=== PATIENT | male | born 1980 | race Caucasian/White ===

== ENCOUNTER 2019-06-04 16:38 | Emergency (ER) | payer OTHER, SELFPAY ==
--- NOTE | ~2019-06-04 | XR_ITS ---
EXAMINATION: XR chest 2V 06/04/2019 17:38 INDICATION: Cough, chest congestion and fever PROCEDURE: 2 view chest COMPARISON: 11/13/2013 FINDINGS: The lungs are clear. The cardiomediastinal silhouette is within normal limits. There are no pleural effusions. There is no pneumothorax suspected. IMPRESSION: 1: NO ACUTE CARDIOPULMONARY DISEASE. Reviewed, dictated and finalized at location A. ETIC GRINDER OPERATOR
[2019-06-04 16:46] VITALS: BP 144/83; PULSE 87; RESP 18; TEMP 37.1; O2SAT 100
[2019-06-04 16:48] VITALS: O2SAT 100
--- NOTE | 2019-06-04 17:31 | ED.URI ---
HPI - URI/Sore Throat General Chief Complaint: Upper Respiratory Infection Stated Complaint: uri Time Seen by Provider: 06/04/19 17:13 Source: patient Mode of arrival: ambulatory Limitations: no limitations History of Present Illness HPI Narrative: This is a 38 year old male that presents to the ER for cold symptoms x 3 weeks. Reports congestion, sinus pain, sore throat and cough. Reports he has been taking OTC cold medications with little relief. Also reports a rash that has been present for the last two weeks. Reports dry, scaly plaques on the axilla, neck, chest and back. Denies fever, chest pain or shortness of breath. Related Data Allergies Allergy/AdvReac Type Severity Reaction Status Date / Time No Known Allergies Allergy Unknown Verified 02/24/19 14:17 Review of Systems Review of Systems: Narrative: CONSTITUTIONAL: Denies fever ENT: Reports rhinorrhea, congestion, sore throat. Denies otalgia. CARDIOVASCULAR: Denies chest pain RESPIRATORY: Denies dyspnea. All systems reviewed & are unremarkable except as noted in HPI and below PMFSH Past Medical History Medical History (Updated 06/04/19 @ 17:50 by Arielle Goldberg PA-C) History of anxiety Social History Social History Smoking status: Current every day smoker Alcohol intake: current Gender identity (if verbalized by the patient): Male Exam Narrative: Exam Narrative: GENERAL: Well-appearing, well-nourished, and in no acute distress. HEAD: Normocephalic, atraumatic. EYES: EOMI. ENT: Turbinates swollen and pale. Mucous membranes moist. Oropharynx without tonsillar hypertrophy exudate or other lesions. Bilateral TMs pearly willis non-bulging. Tender to palpation of the frontal sinuses bilaterally NECK: Supple. No adenopathy or masses. CHEST: Clear to auscultation. No respiratory distress. No wheezes rales or rhonchi HEART: Regular rate and rhythm. No murmur heard. Normal peripheral pulses. EXTREMITIES: Normal range of motion. No edema. SKIN: Warm, dry. Small, dry, scaly, plaques on erythematous base present on the neck, chest and back. Large plaques present in bilateral axilla NEURO: No focal deficits. Alert and oriented x3. PSYCH: Normal mood and affect Course Vital Signs Vital signs: Vital Signs Temperature 98.7 F 06/04/19 16:46 Pulse Rate 87 06/04/19 16:46 Respiratory Rate 18 06/04/19 16:46 Blood Pressure 144/83 H 06/04/19 16:46 Pulse Oximetry 100 06/04/19 16:46 Temperature 98.7 F 06/04/19 16:46 Pulse Rate 87 06/04/19 16:46 Respiratory Rate 18 06/04/19 16:46 Blood Pressure 144/83 H 06/04/19 16:46 Pulse Oximetry 100 06/04/19 16:48 MDM - URI/Sore Throat MDM Narrative Medical decision making narrative: Patient presents emergency department for sinus congestion x3 weeks. He is afebrile and nontoxic-appearing. He has been taking [id number] medications with no relief with consistent symptoms for 3 weeks. He will be started on an antibiotic for this. Chest x-ray is clear. Patient also with rash present on the neck, chest, back and and bilateral axilla. Rash consistent with plaque psoriasis. Patient will be started on a topical corticosteroid for this and was instructed to follow-up with dermatology. Patient was given warnings to return to the ER Lab Data Labs: Influenza A Screen Negative Reference Range: Negative Influenza B Screen Negative Reference Range: Negative Strep Screen Presumptive Negative *(Reference Range: Negative)* Imaging Data Radiologist's impression: ITS Impressions Chest X-Ray 06/04/19 17:41 IMPRESSION: 1: NO ACUTE CARDIOPULMONARY DISEASE. Critical Care Time Critical Care Time Critical Care Time: No Discharge Plan Discharge Clinical Impression: Rash and nonspecific skin eruption Sinusitis Qualifiers: Sinusitis location: frontal Chronicity: acute Recurrence: non-recurrent Qualified Code(
[2019-06-04 18:16] VITALS: BP 140/67; PULSE 80; RESP 19; O2SAT 100
== END 2019-06-04 18:18 | disposition home or self-care (01) ==
PROVIDERS: Emergency Provider Emergency Medicine; PCP Family Medicine
DX: J01.10 Acute frontal sinusitis, unspecified (principal); R21 Rash and other nonspecific skin eruption; F17.200 Nicotine dependence, unspecified, uncomplicated
CPT/HCPCS: 71046; 87081; 87804; 87880; 99283

== ENCOUNTER 2019-06-17 20:00 | Emergency (ER) | payer OTHER, SELFPAY ==
[2019-06-17 20:02] VITALS: BP 131/88; PULSE 89; RESP 16; TEMP 37.7; O2SAT 100
--- NOTE | 2019-06-17 20:22 | ED.GENADULT ---
HPI - General Adult General Chief complaint: Skin/Abscess/Foreign Body Stated complaint: RASH TO HANDS AND FEET Time Seen by Provider: 06/17/19 20:19 Source: patient Mode of arrival: ambulatory Limitations: no limitations History of Present Illness HPI narrative: Patient is a 38-year-old male who presents with 1 month duration of rash has been seen for this in the emergency department was advised to follow-up with dermatology but never did patient on arrival to emergency department notes itching associated with the lesions denies any fever chills nausea vomiting has also been prescribed a topical cream which did not help Related Data Allergies Allergy/AdvReac Type Severity Reaction Status Date / Time No Known Allergies Allergy Unknown Verified 02/24/19 14:17 Review of Systems Review of Systems: Narrative: CONSTITUTIONAL: Denies fever, chills, or sweats. EYES: Denies redness, or discharge. ENT: Denies rhinorrhea, congestion, sore throat, or otalgia. SKIN: Positive for itching and rash MUSCULOSKELETAL: Denies joint pain, or myalgia. PMF Past Medical History Medical History History of anxiety Social History Social History Smoking status: Current every day smoker Alcohol intake: current Gender identity (if verbalized by the patient): Male Exam Narrative: Exam Narrative: GENERAL: Well-appearing, well-nourished, and in no acute distress. HEAD: Normocephalic, atraumatic. EYES: PERRLA and EOMI. ENT: Nares clear, no rhinorrhea or epistaxis. Mucous membranes moist. EXTREMITIES: Normal range of motion. No edema. SKIN: Warm, dry, patient with erythematous plaques in the axilla and groin with other small lesions over the extremities NEURO: Alert and oriented x3. Cranial nerves II through XII grossly intact PSYCH: Normal mood and affect. Course Course Emergency Course: Patient in the room in no distress aware of case findings treatment plan and diagnosis agreeing to follow-up as directed Vital Signs Vital signs: Vital Signs Temperature 99.8 F H 06/17/19 20:02 Pulse Rate 89 06/17/19 20:02 Respiratory Rate 16 06/17/19 20:02 Blood Pressure 131/88 06/17/19 20:02 Pulse Oximetry 100 06/17/19 20:02 Temperature 99.8 F H 06/17/19 20:02 Pulse Rate 89 06/17/19 20:02 Respiratory Rate 16 06/17/19 20:02 Blood Pressure 131/88 06/17/19 20:02 Pulse Oximetry 100 06/17/19 20:02 Medical Decision Making MDM Narrative Medical decision making narrative: Patient in the room in no distress advised to follow with primary care and dermatology for further evaluation Vital Signs Vital Signs: Vital Signs Temperature 99.8 F H 06/17/19 20:02 Pulse Rate 89 06/17/19 20:02 Respiratory Rate 16 06/17/19 20:02 Blood Pressure 131/88 06/17/19 20:02 Pulse Oximetry 100 06/17/19 20:02 Temperature 99.8 F H 06/17/19 20:02 Pulse Rate 89 06/17/19 20:02 Respiratory Rate 16 06/17/19 20:02 Blood Pressure 131/88 06/17/19 20:02 Pulse Oximetry 100 06/17/19 20:02 Discharge Plan Discharge Clinical Impression: Rash and nonspecific skin eruption Patient Disposition: Home, Self-Care Condition: Stable Instructions: Antibiotic Form, Psoriasis (ED) Additional Instructions: Follow-up with dermatology and primary care in the next 7 days for reevaluation Return if symptoms worsen or concerns or any increase in redness swelling pain fever 100.5 or any loss of feeling or function in the extremities Only take medications as directed Follow patient education sheets Prescriptions: New hydroxyzine HCl 25 mg tablet 25 mg PO BID PRN (Reason: itching) Qty: 7 RF: 0 No Action triamcinolone acetonide 0.025 % cream 1 applic TOPICAL BID 14 Days Qty: 80 RF: 0 amoxicillin-pot clavulanate 875-125 mg tablet 1 tablet PO Q12H 5 Days Qty: 10 RF: 0 Follow-up/Referral
[2019-06-17 20:40] VITALS: PULSE 96; O2SAT 100
== END 2019-06-17 20:46 | disposition home or self-care (01) ==
PROVIDERS: Emergency Provider Emergency Medicine; PCP Family Medicine
DX: R21 Rash and other nonspecific skin eruption (principal); F41.9 Anxiety disorder, unspecified; F17.210 Nicotine dependence, cigarettes, uncomplicated
CPT/HCPCS: 99283

== ENCOUNTER 2019-08-08 17:00 | Emergency (ER) | payer OTHER, SELFPAY ==
--- NOTE | ~2019-08-08 | XR_ITS ---
EXAMINATION: XR chest 1V portable INDICATION: Cough and shortness of breath TECHNIQUE: Portable AP chest at 1727 hours COMPARISON: 06/04/2019 FINDINGS: The lungs are free of acute opacities. There is no pleural effusion or pneumothorax. The ca rdiomediastinal silhouette is normal. The visualized bones and soft tissues are unremarkable. IMPRESSION: 1. No acute cardiopulmonary abnormality. Reviewed, dictated and finalized at location A.
[2019-08-08 17:10] VITALS: BP 141/92; PULSE 89; RESP 16; TEMP 37.1; O2SAT 98
--- NOTE | 2019-08-08 17:13 | ED.FEVER ---
HPI - Fever General Chief Complaint: Fever Stated Complaint: fever Time Seen by Provider: 08/08/19 17:08 Source: patient and RN notes reviewed Mode of arrival: ambulatory Limitations: no limitations History of Present Illness HPI Narrative: A 38 y/o male presents to the ED with a subjective fever for the past 2 days. He reports associated diaphroesis, rhinorrhea, cough, SOB and nausea in the mornings. He denies taking anything for his symptoms or any known sick contacts, but he does note that him and his brother, who he lives with, are still currently working. He denies any tremors, chills, body aches, dysuria,or urinary frequency. MD elicited complaint: fever (subjective) Onset (ago): day(s) (2) Associated symptoms: rhinorrhea, cough, shortness of breath, nausea (in the mornings) and other (diaphoresis) Treatments prior to arrival fever: none Related Data Home Medications Medication Instructions Recorded Confirmed buspirone 15 mg 08/08/19 Allergies Allergy/AdvReac Type Severity Reaction Status Date / Time No Known Allergies Allergy Unknown Verified 08/08/19 17:17 Review of Systems Review of Systems: All systems reviewed & are unremarkable except as noted in HPI and below Constitutional: Constitutional: Denies body ache(s), Denies chills, Reports fever(s) (subective) and Reports other (diaphoresis) ENT: Reports nasal discharge Respiratory: Respiratory: Reports cough and Reports dyspnea Gastrointestinal: Gastrointestinal: Reports nausea (in the mornings) Genitourinary: Genitourinary: Denies dysuria and Denies urinary frequency Neurologic: Denies tremor(s) PMFSH Past Medical History Medical History History of anxiety History of liver disease Hx of fracture of rib Surgical History Surgical History Surgical history unknown Social History Social History Smoking packs per day: 1 Smoking cigarettes per day: 20.0 Smoking status: Current every day smoker Alcohol intake: current Gender identity (if verbalized by the patient): Male Exam Narrative: Exam Narrative: GENERAL: Well-appearing, well-nourished, and in no acute distress. HEAD: Normocephalic, atraumatic. ENT: Mucous membranes moist. CHEST: Clear to auscultation. No respiratory distress. HEART: Regular rate and rhythm. Normal peripheral pulses. ABDOMEN: Soft, nontender, nondistended. EXTREMITIES: Normal range of motion. No edema. NEURO: Alert and oriented x3. PSYCH: Normal mood and affect. Course Vital Signs Vital signs: Vital Signs Temperature 98.7 F 08/08/19 17:10 Pulse Rate 89 08/08/19 17:10 Respiratory Rate 16 08/08/19 17:10 Blood Pressure 141/92 H 08/08/19 17:10 Pulse Oximetry 98 08/08/19 17:10 Temperature 98.7 F 08/08/19 17:10 Pulse Rate 89 08/08/19 17:10 Respiratory Rate 16 08/08/19 17:10 Blood Pressure 141/92 H 08/08/19 17:10 Pulse Oximetry 98 08/08/19 17:10 MDM - Fever Lab Data Result diagrams: 08/08/19 17:20 08/08/19 17:20 Labs: Lab Results 08/08/19 08/08/19 08/08/19 Range/Units 17:20 17:20 17:49 WBC 5.9 (4.5-10.0) K/mm3 RBC 4.71 (4.6-6.20) M/mm3 Hgb 15.8 (14.0-18.0) g/dL Hct 46.3 (42.0-52.0) % MCV 98.3 (80-100) fl MCH 33.5 (26-34) pg MCHC 34.1 (32-36) g/dl RDW 13.0 (11.5-14.5) % Plt Count 311 (150-375) k/mm3 MPV 8.5 (7.4-10.4) fl Immature Gran % (Auto) 0.5 (0-0.5) % Neut % (Auto) 47.1 (45.5-73.1) % Lymph % (Auto) 37.1 (18.3-44.2) % [facility] % (Auto) 9.9 H (2.6-8.5) % Eos % (Auto) 4.4 (0-4.4) % Baso % (Auto) 1.0 (0.2-1.2) % Lymph # (Auto) 2.17 (0.9-3.2) K/mm3 [facility] [facility] # (Auto) 0.6 (0.1-0.6) K/mm3 Eos # (Auto) 0.3 (0-0.3) K/mm3 Baso # (Auto) 0.1 (0.0-0.1) K/mm3 Abs Immat Gran (auto) 0.03 (0.00-0.031) K/mm3 A
[2019-08-08] MEDS: SODIUM CHLORIDE 0.9% IV 1,000 ML 999 ML IV CONT (17:30)
[2019-08-08 17:34] LABS: Basophils Absolute Auto 0.1 K/mm3 (0.0-0.1); Eosinophils Absolute Auto 0.3 K/mm3 (0-0.3); Eosinophils Percent Auto 4.4 % (0-4.4); Hematocrit 46.3 % (42.0-52.0); Hemoglobin 15.8 g/dL (14.0-18.0); Immature Granulocyte Absolute 0.03 K/mm3 (0.00-0.031); Immature Granulocyte Percent A 0.5 % (0-0.5); Lymphocytes Absolute Auto 2.17 K/mm3 (0.9-3.2); Lymphocytes Percent Auto 37.1 % (18.3-44.2); Mean Corpuscular HGB Conc 34.1 g/dl (32-36); Mean Corpuscular Hemoglobin 33.5 pg (26-34); Mean Corpuscular Volume 98.3 fl (80-100); Mean Platelet Volume 8.5 fl (7.4-10.4); Monocytes Absolute Auto 0.6 K/mm3 (0.1-0.6); Monocytes Percent Auto 9.9 % (2.6-8.5); Neutrophils Absolute Auto 2.8 K/mm3 (1.3-6.7); Neutrophils Percent Auto 47.1 % (45.5-73.1); Platelet Count Result 311 k/mm3 (150-375); Red Blood Count 4.71 M/mm3 (4.6-6.20); White Blood Count 5.9 K/mm3 (4.5-10.0)
[2019-08-08 17:50] LABS: Alanine Aminotransferase 119 U/L (4-50); Albumin Level 4.7 g/dL (3.5-5.1); Alkaline Phosphatase 106 U/L (38-126); Aspartate Amino Transferase 126 U/L (17-59); Bilirubin,Total 0.5 mg/dL (0.2-1.3); Blood Urea Nitrogen 9 mg/dL (9-20); Calcium 9.5 mg/dL (8.4-10.2); Carbon Dioxide 26 mmol/L (22-30); Chloride 107 mmol/L (98-107); Estimated Glomerular Filt Rate > 60; Glucose 96 mg/dL (75-110); Potassium 4.3 mmol/L (3.4-5.0); Sodium 141 mmol/L (137-145)
[2019-08-08 18:09] LABS: Prothrombin Time 12.5 Seconds (11.1-14.7)
[2019-08-08 18:10] LABS: Partial Thromboplastin Time 27.7 SECONDS (22.3-36.8)
[2019-08-08 18:36] LABS: Add Urine Microscopic? NO; Appearance Urine Clear (Clear); Bilirubin Urine Negative (Negative); Blood Urine Negative (Negative); Color Urine Colorless (Yellow); Glucose Urine UA Negative (Negative); Ketones Urine Negative (Negative); Leukocyte Esterase Ur Negative LEU/UL (Negative); Nitrate Urine Negative (Negative); Protein Urine Negative (Negative); Urobilinogen Urine Negative mg/dL (<2.0)
[2019-08-08 18:39] LABS: Specific Grav Ur 1.004 (1.001-1.035)
[2019-08-08 19:25] VITALS: BP 136/83; PULSE 78; RESP 16; O2SAT 98
== END 2019-08-08 19:27 | disposition home or self-care (01) ==
PROVIDERS: Emergency Provider Emergency Medicine; PCP Family Medicine
DX: B34.9 Viral infection, unspecified (principal); F41.9 Anxiety disorder, unspecified; K76.9 Liver disease, unspecified; F17.210 Nicotine dependence, cigarettes, uncomplicated
CPT/HCPCS: 36415; 71045; 80053; 81003; 85025; 85610; 85730; 96360; 99283; J7030

== ENCOUNTER 2020-03-04 18:53 | Emergency (ER) | payer OTHER, SELFPAY ==
--- NOTE | ~2020-03-04 | XR_ITS ---
XR hand RT min 3V 03/04/2020 19:18 INDICATION: Right hand pain PROCEDURE: 3 views right hand COMPARISON: No prior studies for comparison. FINDINGS: Fracture, dislocation or subluxation is not identified. The soft tissues appear within norm al limits. No foreign bodies are identified. IMPRESSION: 1: NO ACUTE BONE OR JOINT ABNORMALITY IDENTIFIED. Reviewed, dictated and finalized at location A.
[2020-03-04 19:45] VITALS: BP 128/78; PULSE 78; RESP 16; TEMP 36.6; O2SAT 100
--- NOTE | 2020-03-04 20:27 | ED.GENADULT ---
HPI - General Adult General Chief complaint: Extremity Injury, Upper Stated complaint: right hand/thumb pain Time Seen by Provider: 03/04/20 20:19 History of Present Illness HPI narrative: Patient is a 39-year-old male who presents to the ER with pain to the right thumb. Is doing some work at a friend's house when the dog tried to run out the door and he reached for it. He grabbed the collar and his thumb bent backwards towards his wrist. He thinks he felt a pop. He retains range of motion in the thumb. No numbness or tingling in the thumb but he is developing some tingling of the hand that is consistent with his previous carpal tunnel syndrome. Related Data Home Medications Medication Instructions Recorded Confirmed buspirone 15 mg 08/08/19 Allergies Allergy/AdvReac Type Severity Reaction Status Date / Time No Known Allergies Allergy Unknown Verified 03/04/20 20:16 Review of Systems Musculoskeletal: Musculoskeletal: Reports arthralgias and Reports joint swelling Comments: Right thumb pain Neurologic: Denies focal weakness and Reports numbness Hematologic/Lymphatic: Comments: Thumb bruising PMFSH Past Medical History Medical History (Updated 03/04/20 @ 20:34 by Naren Burch MD) History of anxiety History of liver disease Hx of fracture of rib Surgical History Surgical History Surgical history unknown Social History Social History Smoking packs per day: 1 Smoking cigarettes per day: 20.0 Smoking status: Current every day smoker Alcohol intake: current Gender identity (if verbalized by the patient): Male Exam Narrative: Exam Narrative: GENERAL: Well-appearing, well-nourished, and in no acute distress. HEAD: Normocephalic, atraumatic. HEART: Regular rate and rhythm. Normal peripheral pulses. EXTREMITIES: Normal range of motion. Normal strength of the right hand. Bruising over the thenar eminence. Positive carpal tunnel compression test. No focal numbness to the hand. SKIN: Warm, dry, no rash. NEURO: Alert and oriented x3. PSYCH: Normal mood and affect. Course Course Emergency Course: Informed of results. Will splint in thumb spica for comfort. Vital Signs Vital signs: Vital Signs Temperature 97.9 F 03/04/20 19:45 Pulse Rate 78 03/04/20 19:45 Respiratory Rate 16 03/04/20 19:45 Blood Pressure 128/78 03/04/20 19:45 Pulse Oximetry 100 03/04/20 19:45 Temperature 97.9 F 03/04/20 19:45 Pulse Rate 78 03/04/20 19:45 Respiratory Rate 16 03/04/20 19:45 Blood Pressure 128/78 03/04/20 19:45 Pulse Oximetry 100 03/04/20 19:45 Procedures Orthopedic Splinting/Casting Injury #1: Splinting/Casting Date: 03/04/20 Splinting/Casting Time: 20:33 Side: right Upper Extremity Injury Location: finger (thumb) Upper Extremity Immobilizer: thumb spica Splint: customized in ED Pre-Procedure Neuro Vascular Exam: normal Post-Procedure Neuro Vascular Exam: normal Medical Decision Making Vital Signs Vital Signs: Vital Signs Temperature 97.9 F 03/04/20 19:45 Pulse Rate 78 03/04/20 19:45 Respiratory Rate 16 03/04/20 19:45 Blood Pressure 128/78 03/04/20 19:45 Pulse Oximetry 100 03/04/20 19:45 Temperature 97.9 F 03/04/20 19:45 Pulse Rate 78 03/04/20 19:45 Respiratory Rate 16 03/04/20 19:45 Blood Pressure 128/78 03/04/20 19:45 Pulse Oximetry 100 03/04/20 19:45 Imaging Data Radiologist's impression: ITS Impressions Hand X-Ray 03/04/20 19:20 IMPRESSION: 1: NO ACUTE BONE OR JOINT ABNORMALITY IDENTIFIED. Discharge Plan Discharge Clinical Impression: Sprain of hand, thumb, right Patient Disposition: Home, Self-Care Condition: Stable Instructions: Finger Sprain (ED) Additional Instructions: Follow-up with your primary care doctor and remove your spl
[2020-03-04 20:53] VITALS: BP 128/80; PULSE 80; RESP 18; TEMP 36.7; O2SAT 99
== END 2020-03-04 21:06 | disposition home or self-care (01) ==
PROVIDERS: Emergency Provider Emergency Medicine; PCP Family Medicine
DX: S63.601A Unspecified sprain of right thumb, initial encounter (principal); F41.9 Anxiety disorder, unspecified; X50.0XXA Overexertion from strenuous movement or load, initial encounter
CPT/HCPCS: 29125; 73130; 99283

== ENCOUNTER 2020-04-08 19:32 | Emergency (ER) | payer OTHER, SELFPAY ==
--- NOTE | ~2020-04-08 | CT_ITS ---
EXAMINATION: CT brain wo con DATE: 04/08/2020 20:34 INDICATION: Headaches. Epistaxis. Lightheadedness. TECHNIQUE: Computed tomography (CT) of the head was performed without intravenous contrast. Sagittal and coronal reconstructions were performed. The mA was adjusted according to patient size. Iterative reconstruction technique was employed. The dose-length product was 605.33 mGy-cm. COMPARISON: None FINDINGS: No acute intracranial hemorrhage, acute infarction or abnormal extra axial fluid collection. Ventricl es are normal and symmetric. No mass/mass effect. The orbits, paranasal sinuses and mastoid air cells are normal. IMPRESSION: 1. Normal head CT. Reviewed, dictated and finalized at location A. D DIE CUTTER IMPRESSION: 1. Normal head CT.
[2020-04-08 19:34] VITALS: BP 136/89; PULSE 104; RESP 18; TEMP 36.5; O2SAT 100
[2020-04-08] MEDS: KETOROLAC 30 MG/ML VIAL (*BKC) IV PUSH (20:13)
[2020-04-08 20:20] LABS: Basophils Absolute Auto 0.1 K/mm3 (0.0-0.1); Basophils Percent Auto 0.9 % (0.2-1.2); Eosinophils Absolute Auto 0.3 K/mm3 (0-0.3); Eosinophils Percent Auto 5.5 % (0-4.4); Hematocrit 48.6 % (42.0-52.0); Hemoglobin 16.8 g/dL (14.0-18.0); Immature Granulocyte Absolute 0.04 K/mm3 (0.00-0.031); Immature Granulocyte Percent A 0.7 % (0-0.5); Lymphocytes Absolute Auto 2.44 K/mm3 (0.9-3.2); Lymphocytes Percent Auto 44.7 % (18.3-44.2); Mean Corpuscular HGB Conc 34.6 g/dl (32-36); Mean Corpuscular Hemoglobin 34.9 pg (26-34); Mean Platelet Volume 8.5 fl (7.4-10.4); Monocytes Absolute Auto 0.5 K/mm3 (0.1-0.6); Monocytes Percent Auto 8.6 % (2.6-8.5); Neutrophils Absolute Auto 2.2 K/mm3 (1.3-6.7); Neutrophils Percent Auto 39.6 % (45.5-73.1); Platelet Count Result 304 k/mm3 (150-375); Red Blood Count 4.81 M/mm3 (4.6-6.20); Red Cell Distribution Width 13.5 % (11.5-14.5); White Blood Count 5.5 K/mm3 (4.5-10.0)
[2020-04-08 20:30] LABS: Anion Gap 10 mmol/L (8-16); Blood Urea Nitrogen 7 mg/dL (9-20); Calcium 9.5 mg/dL (8.4-10.2); Carbon Dioxide 32 mmol/L (22-30); Chloride 104 mmol/L (98-107); Estimated CRCL calculation 131 ml/min; Estimated Glomerular Filt Rate > 60; Glucose 117 mg/dL (75-110); Potassium 3.6 mmol/L (3.4-5.0); Sodium 146 mmol/L (137-145)
--- NOTE | 2020-04-08 21:14 | ED.HA ---
HPI - Headache General Chief Complaint: Headache Stated Complaint: headache Time Seen by Provider: 04/08/20 19:53 Source: patient Mode of arrival: ambulatory Limitations: no limitations History of Present Illness HPI Narrative: 39-year-old with a history of anxiety here with complaints of frequent frontal headaches on and off for past several weeks. He denies any fever chills no history of nausea or vomiting or blurred vision MD elicited complaint: headache Onset description: gradually Location: frontal Severity: moderate Quality & Timing: throbbing Exacerbating factors: none Relieving factors: nothing Associated symptoms: none Related Data Home Medications Medication Instructions Recorded Confirmed buspirone 15 mg 08/08/19 Allergies Allergy/AdvReac Type Severity Reaction Status Date / Time No Known Allergies Allergy Unknown Verified 04/08/20 19:36 Review of Systems Review of Systems: All systems reviewed & are unremarkable except as noted in HPI and below Constitutional: Constitutional: Reports no additional constitutional complaints Eyes: Eyes: Reports no additional eye complaints ENT: Reports system reviewed and no additional complaints, except as documented Cardiovascular: Cardiovascular: Reports no additional cardiovascular complaints Respiratory: Respiratory: Reports no additional respiratory complaints Gastrointestinal: Gastrointestinal: Reports no additional gastrointestinal complaints Musculoskeletal: Musculoskeletal: Reports no additional musculoskeletal complaints Neurologic: Reports system reviewed and no additional complaints, except as documented PMFSH Past Medical History Medical History (Updated 04/08/20 @ 21:18 by Harsha Garcia MD) History of anxiety History of liver disease Hx of fracture of rib Surgical History Surgical History Surgical history unknown Social History Social History Smoking packs per day: 1 Smoking cigarettes per day: 20.0 Smoking status: Current every day smoker Alcohol intake: current Gender identity (if verbalized by the patient): Male Exam Narrative: Exam Narrative: GENERAL: Well-appearing, well-nourished, and in no acute distress. HEAD: Normocephalic, atraumatic. EYES: PERRLA and EOMI. ENT: Nares clear, no rhinorrhea or epistaxis. NECK: Supple. CHEST: Clear to auscultation. No respiratory distress. HEART: Regular rate and rhythm. No murmur heard. Normal peripheral pulses. ABDOMEN: Soft, nontender, nondistended, normal active bowel sounds. EXTREMITIES: Normal range of motion. No edema. SKIN: Warm, dry, no rash. NEURO: No focal deficits. Alert and oriented x3. PSYCH: Normal mood and affect. Course Course Emergency Course: Patient is constantly on the phone in no distress. Discussed labs, CT findings this time cause of her headache is unknown. Advised him to follow-up with his primary doctor or neurologist. Vital Signs Vital signs: Vital Signs Temperature 36.5 C 04/08/20 19:34 Pulse Rate 104 H 04/08/20 19:34 Respiratory Rate 18 04/08/20 19:34 Blood Pressure 136/89 04/08/20 19:34 Pulse Oximetry 100 04/08/20 19:34 Temperature 36.5 C 04/08/20 19:34 Pulse Rate 104 H 04/08/20 19:34 Respiratory Rate 18 04/08/20 19:34 Blood Pressure 136/89 04/08/20 19:34 Pulse Oximetry 100 04/08/20 19:34 MDM - Headache Lab Data Result diagrams: 04/08/20 20:12 04/08/20 20:12 Labs: Lab Results 04/08/20 04/08/20 Range/Units 20:12 20:12 WBC 5.5 (4.5-10.0) K/mm3 RBC 4.81 (4.6-6.20) M/mm3 Hgb 16.8 (14.0-18.0) g/dL Hct 48.6 (42.0-52.0) % MCV 101.0 H (80-100) fl MCH 34.9 H (26-34) pg MCHC 34.6 (32-36) g/dl RDW 13.5 (11.5-14.5) % Plt Count 304 (150-375) k/mm3 MPV 8.5 (7.4-10.4) fl Immature Gran % (Auto) 0.7 H (0-0.5) % Neut %
== END 2020-04-08 21:28 | disposition home or self-care (01) ==
PROVIDERS: Emergency Provider Family Medicine; PCP Family Medicine
DX: R51.9 Headache, unspecified (principal); F41.9 Anxiety disorder, unspecified; F17.210 Nicotine dependence, cigarettes, uncomplicated
CPT/HCPCS: 36415; 70450; 80048; 85025; 96374; 99284; J1885

== ENCOUNTER 2020-06-29 11:26 | Outpatient (CLI) | payer OTHER, SELFPAY ==
[2020-06-29 11:52] LABS: Basophils Percent Auto 0.6 % (0.2-1.2); Eosinophils Absolute Auto 0.2 K/mm3 (0-0.3); Eosinophils Percent Auto 3.7 % (0-4.4); Hematocrit 47.9 % (42.0-52.0); Hemoglobin 16.4 g/dL (14.0-18.0); Immature Granulocyte Absolute 0.03 K/mm3 (0.00-0.031); Immature Granulocyte Percent A 0.5 % (0-0.5); Lymphocytes Absolute Auto 1.09 K/mm3 (0.9-3.2); Lymphocytes Percent Auto 16.6 % (18.3-44.2); Mean Corpuscular HGB Conc 34.2 g/dl (32-36); Mean Corpuscular Hemoglobin 34.2 pg (26-34); Mean Platelet Volume 9.1 fl (7.4-10.4); Monocytes Absolute Auto 0.7 K/mm3 (0.1-0.6); Monocytes Percent Auto 9.9 % (2.6-8.5); Neutrophils Absolute Auto 4.5 K/mm3 (1.3-6.7); Neutrophils Percent Auto 68.7 % (45.5-73.1); Platelet Count Result 220 k/mm3 (150-375); Red Blood Count 4.79 M/mm3 (4.6-6.20); Red Cell Distribution Width 12.7 % (11.5-14.5); White Blood Count 6.6 K/mm3 (4.5-10.0)
[2020-06-29 12:51] LABS: Alanine Aminotransferase 77 U/L (4-50); Albumin Level 4.1 g/dL (3.5-5.1); Alkaline Phosphatase 80 U/L (38-126); Anion Gap 8 mmol/L (8-16); Aspartate Amino Transferase 81 U/L (17-59); Bilirubin,Total 0.6 mg/dL (0.2-1.3); Blood Urea Nitrogen 9 mg/dL (9-20); Calcium 9.3 mg/dL (8.4-10.2); Carbon Dioxide 27 mmol/L (22-30); Chloride 104 mmol/L (98-107); Cholesterol 188 mg/dL (0-200); Estimated Glomerular Filt Rate > 60; Glucose 121 mg/dL (75-110); HDL Direct 47 mg/dL; Potassium 3.2 mmol/L (3.4-5.0); Sodium 139 mmol/L (137-145); Triglycerides 140 mg/dL (<150)
[2020-06-29 12:53] LABS: Creatinine Urine 29.9 mg/dL
[2020-06-29 13:02] LABS: LDL Cholesterol Direct 110 mg/dL
[2020-06-29 13:27] LABS: Free T4 Free Thyroxine 1.34 ng/mL (0.78-2.19); Vitamin D 25 Hydroxy 21.6 ng/mL
[2020-06-29 13:59] LABS: MALB Creatinine Ratio < 20.1 mg/g (0-30); Microalbumin Urine Random < 6.0 mg/L (0-16.7)
[2020-07-01 07:32] LABS: Triiodothyronine T3 Free 3.6 pg/mL (2.3-4.2)
== END 2020-06-29 11:27 | disposition home or self-care (01) ==
LOC: ANHLAB 11:28
PROVIDERS: PCP Family Medicine; Visit Provider Nurse Practitioner
DX: R03.0 Elevated blood-pressure reading, without diagnosis of hypertension (principal); G43.909 Migraine, unspecified, not intractable, without status migrainosus; Z00.00 Encounter for general adult medical examination without abnormal findings
CPT/HCPCS: 36415; 80053; 80061; 82043; 82306; 84439; 84443; 84481; 85025

== ENCOUNTER 2020-07-07 15:17 | Emergency (ER) | payer OTHER, SELFPAY ==
[2020-07-07 15:50] VITALS: BP 146/96; PULSE 93; RESP 18; TEMP 36.8; O2SAT 97
[2020-07-07 16:14] LABS: Basophils Percent Auto 0.7 % (0.2-1.2); Eosinophils Absolute Auto 0.2 K/mm3 (0-0.3); Eosinophils Percent Auto 4.1 % (0-4.4); Hematocrit 44.6 % (42.0-52.0); Hemoglobin 15.5 g/dL (14.0-18.0); Immature Granulocyte Absolute 0.02 K/mm3 (0.00-0.031); Immature Granulocyte Percent A 0.3 % (0-0.5); Lymphocytes Absolute Auto 2.16 K/mm3 (0.9-3.2); Lymphocytes Percent Auto 36.6 % (18.3-44.2); Mean Corpuscular HGB Conc 34.8 g/dl (32-36); Mean Corpuscular Hemoglobin 34.1 pg (26-34); Mean Corpuscular Volume 98.2 fl (80-100); Mean Platelet Volume 8.6 fl (7.4-10.4); Monocytes Absolute Auto 0.7 K/mm3 (0.1-0.6); Neutrophils Absolute Auto 2.8 K/mm3 (1.3-6.7); Neutrophils Percent Auto 47.3 % (45.5-73.1); Platelet Count Result 220 k/mm3 (150-375); Red Blood Count 4.54 M/mm3 (4.6-6.20); Red Cell Distribution Width 12.9 % (11.5-14.5); White Blood Count 5.9 K/mm3 (4.5-10.0)
[2020-07-07 16:25] LABS: Anion Gap 10 mmol/L (8-16); Blood Urea Nitrogen 7 mg/dL (9-20); Calcium 8.9 mg/dL (8.4-10.2); Carbon Dioxide 23 mmol/L (22-30); Chloride 103 mmol/L (98-107); Estimated CRCL calculation 116 ml/min; Estimated Glomerular Filt Rate > 60; Glucose 98 mg/dL (75-110); Potassium 3.8 mmol/L (3.4-5.0); Sodium 136 mmol/L (137-145)
== END 2020-07-07 21:32 | disposition left against medical advice (07) ==
PROVIDERS: Emergency Provider Emergency Medicine; PCP Nurse Practitioner
DX: R04.0 Epistaxis (principal)
CPT/HCPCS: 36415; 80048; 85025; 99199

== ENCOUNTER 2020-07-23 11:09 | Outpatient (CLI) | payer OTHER, SELFPAY ==
[2020-07-23 12:57] LABS: Hepatitis B Surface Antigen Negative (Negative)
[2020-07-23 13:02] LABS: HAV RESULT Negative (Negative); Hepatitis B Core IgM Result Negative (Negative)
[2020-07-23 13:14] LABS: Hepatitis C Virus Antibody Negative (Negative)
== END 2020-07-23 11:10 | disposition home or self-care (01) ==
PROVIDERS: PCP Nurse Practitioner; Visit Provider Nurse Practitioner
DX: R94.5 Abnormal results of liver function studies (principal)
CPT/HCPCS: 36415; 80074

== ENCOUNTER 2020-07-28 14:46 | Outpatient (CLI) | payer OTHER, SELFPAY ==
--- NOTE | ~2020-07-28 | CT_ITS ---
EXAMINATION: CT brain wo con DATE: 07/28/2020 15:06 INDICATION: Migraine headache TECHNIQUE: Computed tomography (CT) of the head was performed without intravenous contrast. The mA wa s adjusted according to patient size. Iterative reconstruction technique was employed. Exam dose: 60 5.33 mGy-cm total exam DLP. COMPARISON: 04/08/2020 CT brain FINDINGS: No intracranial mass lesion or hemorrhage or cerebrovascular accident. No midline shift or mass effect. Normal ventricular size. No subdural or epidural hematoma. Orbits appear normal. Included paranasal sinuses and mastoid air cells are normally developed and aerated. No fracture or bone destruction of the cranial vault. IMPRESSION: Normal examination Reviewed, dictated and finalized at Location A. Reviewed, dictated and finalized at location B. IMPRESSION: Normal examination
== END 2020-07-28 14:47 | disposition home or self-care (01) ==
PROVIDERS: PCP Family Medicine; Visit Provider Nurse Practitioner
DX: G43.909 Migraine, unspecified, not intractable, without status migrainosus (principal)
CPT/HCPCS: 70450

== ENCOUNTER 2020-08-04 12:24 | Emergency (ER) | payer OTHER, SELFPAY ==
[2020-08-04] VITALS (12 sets, daily range): BP systolic 105–137; BP diastolic 70–98; PULSE 72–97; RESP 11–19; TEMP 36.8; O2SAT 97–99
--- NOTE | 2020-08-04 13:03 | PC.NURSE ---
patient states that he has been having seizures for about a year which start with him getting tunnel vision . today he had an epsiode of this visual change but patient is unsure if he had a seizure. has an appointment with neuro in 2 weeks. states was able to drive hmself to hospital after event. patient has strong order of etoh
[2020-08-04 13:10] LABS: Basophils Absolute Auto 0.1 K/mm3 (0.0-0.1); Basophils Percent Auto 1.1 % (0.2-1.2); Eosinophils Absolute Auto 0.2 K/mm3 (0-0.3); Eosinophils Percent Auto 4.4 % (0-4.4); Hemoglobin 15.4 g/dL (14.0-18.0); Immature Granulocyte Absolute 0.01 K/mm3 (0.00-0.031); Immature Granulocyte Percent A 0.2 % (0-0.5); Lymphocytes Absolute Auto 1.63 K/mm3 (0.9-3.2); Lymphocytes Percent Auto 34.5 % (18.3-44.2); Mean Corpuscular Hemoglobin 34.8 pg (26-34); Mean Corpuscular Volume 99.5 fl (80-100); Mean Platelet Volume 8.4 fl (7.4-10.4); Monocytes Absolute Auto 0.7 K/mm3 (0.1-0.6); Neutrophils Absolute Auto 2.2 K/mm3 (1.3-6.7); Neutrophils Percent Auto 45.8 % (45.5-73.1); Platelet Count Result 211 k/mm3 (150-375); Red Blood Count 4.42 M/mm3 (4.6-6.20); Red Cell Distribution Width 13.6 % (11.5-14.5); White Blood Count 4.7 K/mm3 (4.5-10.0)
[2020-08-04 13:16] LABS: Alanine Aminotransferase 128 U/L (4-50); Albumin Level 4.4 g/dL (3.5-5.1); Alkaline Phosphatase 117 U/L (38-126); Anion Gap 7 mmol/L (8-16); Aspartate Amino Transferase 200 U/L (17-59); Bilirubin,Total 0.5 mg/dL (0.2-1.3); Blood Urea Nitrogen 11 mg/dL (9-20); Calcium 8.4 mg/dL (8.4-10.2); Carbon Dioxide 28 mmol/L (22-30); Chloride 104 mmol/L (98-107); Estimated CRCL calculation 104 ml/min; Estimated Glomerular Filt Rate > 60; Glucose 114 mg/dL (75-110); Phosphorus 3.3 mg/dL (2.5-4.5); Potassium 3.8 mmol/L (3.4-5.0); Sodium 139 mmol/L (137-145)
--- NOTE | 2020-08-04 13:21 | PC.NURSE ---
spoke with [facility] to get an updaed medication list. they report that patient is on no current seizure medications
[2020-08-04] MEDS: LORazepam INJ (*CRX) 2 MG/ML VIAL 1 MG IV PUSH (13:27)
[2020-08-04 14:16] LABS: Add Urine Microscopic? NO; Appearance Urine Clear (Clear); Bilirubin Urine Negative (Negative); Blood Urine Negative (Negative); Color Urine Yellow (Yellow); Glucose Urine UA Negative (Negative); Ketones Urine Negative (Negative); Leukocyte Esterase Ur Negative LEU/UL (Negative); Nitrate Urine Negative (Negative); Protein Urine Negative (Negative); Specific Grav Ur 1.008 (1.001-1.035); Urobilinogen Urine Negative mg/dL (<2.0)
[2020-08-04 14:28] LABS: Amphetamine Screen Urine Negative (Negative); Barbiturate Screen Urine Negative (Negative); Benzodiazepines Screen Urine Negative (Negative); Cannabinoid Screen Urine Negative (Negative); Cocaine Screen Urine Negative (Negative); Methadone Screen Urine Negative (Negative); Opiate Screen Urine Negative (Negative); Phencyclidine Screen Urine Negative (Negative)
--- NOTE | 2020-08-04 14:48 | ED.GENADULT ---
HPI - General Adult General Chief complaint: Unspecified Stated complaint: I had an episode tunnel vision Time Seen by Provider: 08/04/20 12:44 Source: patient Mode of arrival: ambulatory Limitations: no limitations History of Present Illness HPI narrative: Patient presents for evaluation after having some tunnel vision which he calls an aura to a seizure. Patient denies he has been taking his prescribed medication by his primary care he has a appointment with the neurologist at [facility] for further investigation. He states that he is not sure which medications he is on but he has been taking them daily. Patient states that he has not had any seizures OR EPISODES in over a month. He denies any fevers, chills, nausea or vomiting, diarrhea, syncope, changes in mentation. Patient states that he walked to the emergency department for evaluation. Related Data Home Medications Medication Instructions Recorded Confirmed amitriptyline 10 mg PO DAILY 08/04/20 ergocalciferol (vitamin D2) 08/04/20 ergocalciferol (vitamin D2) 50,000 unit PO DAILY 08/04/20 08/04/20 gabapentin 100 mg PO BID 08/04/20 lisinopril 5 mg PO DAILY 08/04/20 sumatriptan succinate 25 mg PO DAILY 08/04/20 08/04/20 Allergies Allergy/AdvReac Type Severity Reaction Status Date / Time No Known Allergies Allergy Unknown Verified 04/08/20 19:36 Review of Systems Review of Systems: Narrative: CONSTITUTIONAL: Denies fever, chills, or sweats. EYES: Reports visual changes now resolved denies redness, or discharge. ENT: Denies rhinorrhea, congestion, sore throat, or otalgia. CARDIOVASCULAR: Denies chest pain, palpitations, or edema. RESPIRATORY: Denies cough or dyspnea. GASTROINTESTINAL: Denies abdominal pain, nausea, vomiting, or diarrhea. GENITOURINARY: Denies dysuria or hematuria. SKIN: Denies rash or itching. MUSCULOSKELETAL: Denies back pain, joint pain, or myalgia. NEUROLOGIC: Denies headache, numbness, dizziness, or weakness. PSYCHIATRIC: Denies anxiety or depression. [facility] Past Medical History Medical History (Updated 08/04/20 @ 15:23 by Hussain Moffett PA-C) History of anxiety History of liver disease Hx of fracture of rib Surgical History Surgical History Surgical history unknown Social History Social History Smoking packs per day: 1 Smoking cigarettes per day: 20.0 Smoking status: Current every day smoker Alcohol intake: current Gender identity (if verbalized by the patient): Male Exam Narrative: Exam Narrative: GENERAL: Well-appearing, well-nourished, and in no acute distress. Disheveled. HEAD: Normocephalic, atraumatic. EYES: PERRLA and EOMI. ENT: Nares clear, no rhinorrhea or epistaxis. Mucous membranes moist. Oropharynx without tonsillar hypertrophy exudate or other lesions. Bilateral TMs pearly willis nonbulging NECK: Supple. No adenopathy or masses. Range of motion intact. CHEST: Clear to auscultation. No respiratory distress. No wheezes rales or rhonchi HEART: Regular rate and rhythm. No murmur heard. Normal peripheral pulses. ABDOMEN: Soft, nontender, nondistended, normal active bowel sounds. EXTREMITIES: Normal range of motion. No edema. SKIN: Warm, dry, no rash. NEURO: No focal deficits. Alert and oriented x3. Patient not acting as if he is in a postictal state. Speech is clear. PSYCH: Normal mood and affect. Course Vital Signs Vital signs: Vital Signs Temperature 98.3 F 08/04/20 12:35 Pulse Rate 86 08/04/20 12:35 Respiratory Rate 18 08/04/20 12:35 Blood Pressure 137/98 H 08/04/20 12:35 Pulse Oximetry 97 08/04/20 12:35 Temperature 98.3 F 08/04/20 12:35 Pulse Rate 78 08/04/20 15:43 Respiratory Rate 18 08/04/20 15:43 Blood Pressure 122/78 08/04/20 15:43 Pulse Oximetry 99 08/04/20 15:43 Medical Decision Making MDM Narrative Medical decision making narrative: Afte
== END 2020-08-04 15:45 | disposition home or self-care (01) ==
PROVIDERS: Physician Assistant; Emergency Provider Emergency Medicine; PCP Family Medicine
DX: H53.9 Unspecified visual disturbance (principal); F41.9 Anxiety disorder, unspecified
CPT/HCPCS: 36415; 80053; 80307; 81003; 83735; 84100; 85025; 96374; 99284; J2060

== ENCOUNTER 2020-08-25 11:31 | Emergency (ER) | payer OTHER, SELFPAY ==
[2020-08-25 11:36] VITALS: BP 137/93; PULSE 101; RESP 18; TEMP 36.5; O2SAT 98
--- NOTE | 2020-08-25 12:26 | ED.GENADULT ---
HPI - General Adult General Chief complaint: Dental/Oral Stated complaint: tooth infection Time Seen by Provider: 08/25/20 12:24 History of Present Illness HPI narrative: Patient is a 39-year-old male otherwise healthy who comes into the ED today complaining of dental pain. Patient reports he has been having right lower dental pain for a few months now. He was seen by his dentist for these symptoms 2 days ago who recommended that he get prescribed an antibiotic but the dentist could not prescribe him one which is why he is here today. He denies any fevers, voice changes or any other symptoms or concerns. Using [id number] Profen for the pain. Dentist is here in [place], he cannot member the name. Related Data Home Medications Medication Instructions Recorded Confirmed amitriptyline 10 mg PO DAILY 08/04/20 ergocalciferol (vitamin D2) 08/04/20 ergocalciferol (vitamin D2) 50,000 unit PO DAILY 08/04/20 08/04/20 gabapentin 100 mg PO BID 08/04/20 lisinopril 5 mg PO DAILY 08/04/20 sumatriptan succinate 25 mg PO DAILY 08/04/20 08/04/20 Allergies Allergy/AdvReac Type Severity Reaction Status Date / Time No Known Allergies Allergy Unknown Verified 08/25/20 11:38 Review of Systems Constitutional: Constitutional: Reports as per HPI, Denies fever(s), Denies night sweats and Denies weakness ENT: Comments: See HPI Cardiovascular: Cardiovascular: Denies chest pain, Denies edema, Denies leg edema, Denies dyspnea and Denies orthopnea Respiratory: Respiratory: Denies cough and Denies dyspnea Gastrointestinal: Gastrointestinal: Denies abdominal pain, Denies constipation, Denies diarrhea, Denies nausea and Denies vomiting Musculoskeletal: Musculoskeletal: Denies abnormal gait, Denies back pain, Denies numbness and Denies tingling Neurologic: Denies Abnormal speech present, Denies abnormal gait, Denies numbness, Denies tingling and Denies weakness Psychiatric: Psychiatric: Denies homicidal ideation and Denies suicidal ideation [facility] Past Medical History Medical History (Updated 08/25/20 @ 12:56 by Froy Aiken PA-C) History of anxiety History of liver disease Hx of fracture of rib Surgical History Surgical History Surgical history unknown Social History Social History Smoking packs per day: 1 Smoking cigarettes per day: 20.0 Smoking status: Current every day smoker Alcohol intake: current Gender identity (if verbalized by the patient): Male Exam Const: General: cooperative, healthy appearing, comfortable, no acute distress, well developed, alert, awake and Physically active Orientation/consciousness: patient oriented x3 Other: Pleasant, well-appearing HENMT: Head: normal to inspection, normocephalic and atraumatic Ears: external ears normal General nose exam: Normal external nose present Teeth image: 1. Dental layla of #31 tooth. Surrounding gingiva is slightly edematous and tender to palpate, no induration or fluctuance or signs of abscess. Eyes: Pupils: Equal, round and reactive pupils present EOM: EOMs intact bilaterally Neck: Neck: normal visual inspection Chest: Chest palpation & inspection: normal inspection of the chest and no tenderness Resp: Effort & Inspection: normal respiratory effort and able to speak in complete sentences Auscultation: clear to auscultation bilaterally Cardio: Rate: regular rate Rhythm: regular rhythm GI: Inspection: normal to inspection GI Palp: No abdominal tenderness : General: Yes no CVA tenderness Back/Spine/Pelvis: Back: no CVA tenderness Skin: General skin exam: normal color and no rashes or lesions noted Lesions: no lesions Neuro: General: patient oriented x3, no focal motor deficits and CN's II-XI intact bilaterally Cranial nerves: Yes Equal, round and reactive pupils present Speech: No Abnormal speech present Ext
[2020-08-25 13:17] VITALS: BP 119/90; PULSE 80; RESP 18; O2SAT 100
== END 2020-08-25 13:18 | disposition home or self-care (01) ==
PROVIDERS: Emergency Provider Emergency Medicine; PCP Family Medicine
DX: K02.9 Dental caries, unspecified (principal); F41.9 Anxiety disorder, unspecified; K76.9 Liver disease, unspecified; F17.210 Nicotine dependence, cigarettes, uncomplicated
CPT/HCPCS: 99283

== ENCOUNTER → 2020-08-26 06:41 | Outpatient (CLI) | payer OTHER, SELFPAY ==
[2020-08-26 16:56] LABS: SARS-CoV-2 RNA PCR Negative
== END ==
PROVIDERS: PCP Family Medicine; Visit Provider Family Medicine
DX: R68.89 Other general symptoms and signs (principal); Z20.822 Contact with and (suspected) exposure to COVID-19
CPT/HCPCS: C9803; U0003; U0005

== ENCOUNTER 2023-09-30 22:29 | Emergency (ER) | payer OTHER, SELFPAY ==
--- NOTE | ~2023-09-30 | XR_ITS ---
EXAMINATION: XR finger 2nd RT min 2V DATE: 09/30/2023 23:08 INDICATION: Right hand injury. TECHNIQUE: 2 views of right hand second digit were obtained. COMPARISON: Right hand radiographs 03/04/2020 FINDINGS: Bone alignment is normal. No fracture. Joint spaces are normal. There is a laceration of th e second digit. IMPRESSION: 1. No fracture or radiopaque foreign body. Reviewed, dictated and finalized at location E.
[2023-09-30 22:43] VITALS: BP 109/80; PULSE 98; RESP 18; TEMP 36.3; O2SAT 95
[2023-09-30 23:18] LABS: Basophils Percent Auto 0.5 % (0.2-1.2); Eosinophils Absolute Auto 0.2 K/mm3 (0-0.3); Eosinophils Percent Auto 3.6 % (0-4.4); Hematocrit 39.5 % (42.0-52.0); Hemoglobin 13.4 g/dL (14.0-18.0); Immature Granulocyte Absolute 0.03 K/mm3 (0.00-0.031); Immature Granulocyte Percent A 0.5 % (0-0.5); Lymphocytes Absolute Auto 1.34 K/mm3 (0.9-3.2); Lymphocytes Percent Auto 20.9 % (18.3-44.2); Mean Corpuscular HGB Conc 33.9 g/dl (32-36); Mean Corpuscular Hemoglobin 32.5 pg (26-34); Mean Corpuscular Volume 95.9 fl (80-100); Mean Platelet Volume 8.5 fl (7.4-10.4); Monocytes Absolute Auto 0.6 K/mm3 (0.1-0.6); Monocytes Percent Auto 8.6 % (2.6-8.5); Neutrophils Absolute Auto 4.2 K/mm3 (1.3-6.7); Neutrophils Percent Auto 65.9 % (45.5-73.1); Platelet Count Result 222 k/mm3 (150-375); Red Blood Count 4.12 M/mm3 (4.6-6.20); Red Cell Distribution Width 13.1 % (11.5-14.5); White Blood Count 6.4 K/mm3 (4.5-10.0)
[2023-09-30 23:34] LABS: Ethanol 14 mg/dL (<10)
[2023-09-30 23:36] LABS: Alanine Aminotransferase 26 U/L (6-50); Albumin Level 3.7 g/dL (3.5-5.1); Alkaline Phosphatase 82 U/L (38-126); Anion Gap 5 mmol/L (4-12); Aspartate Amino Transferase 35 U/L (17-59); Bilirubin,Total 0.4 mg/dL (0.2-1.3); Blood Urea Nitrogen 15 mg/dL (9-20); Calcium 8.7 mg/dL (8.4-10.2); Carbon Dioxide 27 mmol/L (22-30); Chloride 106 mmol/L (98-107); Estimated CRCL calculation 121 ml/min; Estimated Glomerular Filt Rate > 60; Glucose 126 mg/dL (65-110); Potassium 3.4 mmol/L (3.4-5.0); Sodium 138 mmol/L (137-145)
[2023-09-30 23:52] LABS: Prothrombin Time 13.9 Seconds (11.1-14.7)
[2023-09-30 23:53] LABS: Partial Thromboplastin Time 23.6 Seconds (22.3-36.8)
--- NOTE | 2023-09-30 23:55 | ED.UPPEXIN ---
HPI - Extremity Injury (Upper) General Chief Complaint: Extremity Injury, Upper Stated Complaint: slipped and fell on machette Time Seen by Provider: 09/30/23 22:39 Source: patient Mode of arrival: ambulatory Limitations: no limitations History of Present Illness HPI narrative: Patient is a 42-year-old male who presents the ED with report of a laceration to his right 2nd digit. Patient reports he was clearing some rubi/brush with a machete when he slipped walking up a hillside and fell onto the machete. Sustained a laceration to R 2nd digit flexor surface. Denies any other injuries. Denies numbness. Tetanus UTD. Related Data Home Medications Medication Instructions Recorded Confirmed amitriptyline 10 mg tablet 10 mg PO DAILY 08/04/20 ergocalciferol (vitamin D2) 1,250 08/04/20 mcg (50,000 unit) capsule ergocalciferol (vitamin D2) 1,250 50,000 unit PO DAILY 08/04/20 08/04/20 mcg (50,000 unit) capsule gabapentin 100 mg capsule 100 mg PO BID 08/04/20 lisinopril 5 mg tablet 5 mg PO DAILY 08/04/20 sumatriptan succinate 25 mg tablet 25 mg PO DAILY 08/04/20 08/04/20 Allergies Allergy/AdvReac Type Severity Reaction Status Date / Time No Known Allergies Allergy Unknown Verified 08/25/20 11:38 Review of Systems Review of Systems: CONSTITUTIONAL: Denies fever, chills, or sweats. MUSCULOSKELETAL: See HPI. NEUROLOGIC: Denies headache, dizziness, numbness, or weakness. All systems reviewed & are unremarkable except as noted in HPI and below PMFSH Past Medical History Medical History History of anxiety History of liver disease Hx of fracture of rib Surgical History Surgical History Surgical history unknown Social History Social History Smoking packs per day: 1 Smoking cigarettes per day: 20.0 Smoking status: Current every day smoker Alcohol intake: current Gender identity (if verbalized by the patient): Male Exam Narrative: GENERAL: Mildly disheveled appearing, well-nourished, non-toxic, in no acute distress. HEAD: Normocephalic, atraumatic. RESPIRATORY: Airway patent, respirations nonlabored. CARDIOVASCULAR: Regular rate and rhythm without murmurs, rubs, or gallops. Radial pulses 2+ MUSCULOSKELETAL: Moves all extremities. No gross deformities. Flexion and extension intact of R 2nd finger. No limited ROM. Sensation intact throughout finger and distally. SKIN: Warm, dry, normal color. Large 4cm laceration to R 2nd digit flexor surface just below PIP joint, extending along lateral edge of finger. Mild active bleeding. No pulsatile bleeding. No obvious FB. Scattered erythematous papules to extremities and neck. NEURO: A&O X3. Speech clear. PSYCHIATRIC: Appropriate mood and affect. Normal interaction. Course Vital Signs Vital signs: Vital Signs Temperature 97.4 F L 09/30/23 22:43 Pulse Rate 98 09/30/23 22:43 Respiratory Rate 18 09/30/23 22:43 Blood Pressure 109/80 09/30/23 22:43 Pulse Oximetry 95 09/30/23 22:43 Temperature 97.4 F L 09/30/23 22:43 Pulse Rate 78 10/01/23 02:29 Respiratory Rate 18 10/01/23 02:29 Blood Pressure 110/72 10/01/23 02:29 Pulse Oximetry 99 10/01/23 02:29 Procedures Laceration Laceration 1: Date: 10/01/23 Time: 01:50 Site: hand Side (If applicable): right (2nd digit) Size (cm): 4 Description: linear Depth: simple, single layer Local Anesthetic: lidocaine 1% and other anesthetic (digital block) Amount of anesthesia used (mL): 5 Pre-repair: wound explored, irrigated and irrigated extensively ====== Skin Level ====== Skin layer closed with: nylon Size (cm): 4-0 Number of sutures: 13 Technique: simple, interrupted ====== Subcutaneous L
--- NOTE | 2023-10-01 00:16 | PC.NURSE ---
per pippa gagnon verbal ordered to discontinue 1G ancef IM. this rn used closed loop communication to confirm order change to ivpg. pippa gagnon verbalized verbal ordered.
[2023-10-01] MEDS: ceFAZolin 1 GM/NS 50 ML 1 GM/50 ML BAG IVPB (00:26)
[2023-10-01] MEDS: ONDANSETRON INJ 4 MG/2 ML VIAL IV PUSH (01:33)
[2023-10-01 02:25] VITALS: BP 110/72; PULSE 78; RESP 18; O2SAT 99
[2023-10-01 02:29] VITALS: BP 110/72; PULSE 78; RESP 18; O2SAT 99
== END 2023-10-01 02:30 | disposition home or self-care (01) ==
PROVIDERS: Emergency Provider Physician Assistant; PCP Family Medicine
DX: S61.210A Laceration without foreign body of right index finger without damage to nail, initial encounter (principal); F41.9 Anxiety disorder, unspecified; W01.118A Fall on same level from slipping, tripping and stumbling with subsequent striking against other sharp object, initial encounter
CPT/HCPCS: 12002; 36415; 73140; 80053; 80307; 85025; 85610; 85730; 96365; 96375; 99284; J0690; J2405

== ENCOUNTER 2023-10-08 11:49 | Emergency (ER) | payer OTHER, SELFPAY ==
[2023-10-08 12:03] VITALS: BP 117/76; PULSE 76; RESP 16; TEMP 36.9; O2SAT 100
--- NOTE | 2023-10-08 12:47 | ED.SKABFB ---
HPI - Skin/Abscess/Foreign Bdy General Chief complaint: Skin/Abscess/Foreign Body Stated complaint: rash Time Seen by Provider: 10/08/23 12:20 History of Present Illness HPI narrative: Pt says he was clearing brush a week or so ago and has developed itchy rash all over body. Pt says it started on leg and has now spread all over trunk and all extremities. Pt sasy he sweated a lot so thinks that is why it's all over. Pt denies any other complaints. Related Data Home Medications Medication Instructions Recorded Confirmed amitriptyline 10 mg tablet 10 mg PO DAILY 08/04/20 ergocalciferol (vitamin D2) 1,250 08/04/20 mcg (50,000 unit) capsule ergocalciferol (vitamin D2) 1,250 50,000 unit PO DAILY 08/04/20 08/04/20 mcg (50,000 unit) capsule gabapentin 100 mg capsule 100 mg PO BID 08/04/20 lisinopril 5 mg tablet 5 mg PO DAILY 08/04/20 sumatriptan succinate 25 mg tablet 25 mg PO DAILY 08/04/20 08/04/20 Allergies Allergy/AdvReac Type Severity Reaction Status Date / Time No Known Allergies Allergy Unknown Verified 08/25/20 11:38 Review of Systems Review of Systems: All systems reviewed & are unremarkable except as noted in HPI and below PMFSH Past Medical History Medical History (Updated 10/08/23 @ 12:53 by Gia Ackerman III, DO) History of anxiety History of liver disease Hx of fracture of rib Surgical History Surgical History Surgical history unknown Social History Social History Smoking packs per day: 1 Smoking cigarettes per day: 20.0 Smoking status: Current every day smoker Alcohol intake: current Gender identity (if verbalized by the patient): Male Exam Const: General: healthy appearing Nutritional Appearance: well nourished Orientation/consciousness: patient oriented x3 Limitations: no limitations HENMT: Head: normal to inspection Eyes: Conjunctivae: conjunctivae normal Pupils: Equal, round and reactive pupils present EOM: EOMs intact bilaterally Neck: Neck: normal visual inspection and no lymphadenopathy Resp: Effort & Inspection: normal respiratory effort Auscultation: clear to auscultation bilaterally Cardio: Rate: regular rate Rhythm: regular rhythm Skin: Other: gerealized macular to maculopapular blachable rash to trunk and extremities. Neuro: General: patient oriented x3, moves all extremities, no meningeal signs and no focal motor deficits Speech: normal speech Extrem: General: normal to inspection and no clubbing, cyanosis or edema Psych: Mental Status: mental status grossly normal Affect: normal affect Attitude: cooperative Course Vital Signs Vital signs: Vital Signs Temperature 98.5 F 10/08/23 12:03 Pulse Rate 76 10/08/23 12:03 Respiratory Rate 16 10/08/23 12:03 Blood Pressure 117/76 10/08/23 12:03 Pulse Oximetry 100 10/08/23 12:03 Oxygen Delivery Room Air 10/08/23 12:03 Temperature 98.5 F 10/08/23 12:03 Pulse Rate 76 10/08/23 12:03 Respiratory Rate 16 10/08/23 12:03 Blood Pressure 117/76 10/08/23 12:03 Pulse Oximetry 100 10/08/23 12:03 Oxygen Delivery Room Air 10/08/23 12:03 MDM - Skin/Abscess/Foreign Bdy MDM Narrative Medical decision making narrative: generalized rash to trunk and extremities, does not appear to be contact dermatitis but is blanchable. Pt does not wish to have blood work or further testing done. wants shot of steroids. will give shot of kenalog and see how he responds. Pt will follow up with PCP if not improved. Discharge Plan Discharge Clinical Impression: Rash Patient Disposition: Home, Self-Care Condition: Stable Instructions: Antibiotic Form, Contact Dermatitis (ED), Acute Rash (ED) Additional Instructions: follow up with PCP for further testing if shot does not improve or resolve rash. Prescriptions: No Action amanda
[2023-10-08] MEDS: TRIAMCINOLONE ACET INJ 40 MG/ML VIAL IM (12:48)
== END 2023-10-08 12:54 | disposition home or self-care (01) ==
PROVIDERS: Emergency Provider Emergency Medicine; PCP Family Medicine
DX: R21 Rash and other nonspecific skin eruption (principal); K76.9 Liver disease, unspecified; F41.9 Anxiety disorder, unspecified; F17.210 Nicotine dependence, cigarettes, uncomplicated; Z79.899 Other long term (current) drug therapy
CPT/HCPCS: 96372; 99283; J3301

== ENCOUNTER 2023-12-22 08:25 | Emergency (ER) | payer OTHER, SELFPAY ==
[2023-12-22 09:17] VITALS: BP 126/75; PULSE 72; RESP 17; TEMP 36.3; O2SAT 100
--- NOTE | 2023-12-22 10:20 | ED.GENADULT ---
HPI - General Adult General Chief complaint: Skin/Abscess/Foreign Body Stated complaint: genital swelling Time Seen by Provider: 12/22/23 08:41 History of Present Illness HPI narrative: Is a 43-year-old gentleman who presents emergency department with chief complaint of rash. The patient reports that he found out that he had bedbugs in the house and attempted to bed bugs off of him he took bleach water and 14 over himself particularly his genitalia patient reports that after doing so this can became irritated and he has redness and swelling of his genitalia the patient reports the area is painful Related Data Home Medications Medication Instructions Recorded Confirmed amitriptyline 10 mg tablet 10 mg PO DAILY 08/04/20 ergocalciferol (vitamin D2) 1,250 08/04/20 mcg (50,000 unit) capsule ergocalciferol (vitamin D2) 1,250 50,000 unit PO DAILY 08/04/20 08/04/20 mcg (50,000 unit) capsule gabapentin 100 mg capsule 100 mg PO BID 08/04/20 lisinopril 5 mg tablet 5 mg PO DAILY 08/04/20 sumatriptan succinate 25 mg tablet 25 mg PO DAILY 08/04/20 08/04/20 Allergies Allergy/AdvReac Type Severity Reaction Status Date / Time No Known Allergies Allergy Unknown Verified 12/22/23 10:19 Review of Systems Review of Systems: A 10 system review of systems was completed on the patient and is negative except for what is stated in the HPI. Nursing and ancillary documentation was reviewed. PMFSH Past Medical History Medical History (Updated 12/22/23 @ 10:23 by Jag Marr MD) History of anxiety History of liver disease Hx of fracture of rib Surgical History Surgical History Surgical history unknown Social History Social History Smoking packs per day: 1 Smoking cigarettes per day: 20.0 Smoking status: Current every day smoker Alcohol intake: current Gender identity (if verbalized by the patient): Male Exam Narrative: GENERAL: Well-appearing, well-nourished, and in no acute distress. HEAD: Normocephalic, atraumatic. EYES: PERRLA and EOMI. ENT: Nares clear, no rhinorrhea or epistaxis. Mucous membranes moist. NECK: Supple. CHEST: Clear to auscultation. No respiratory distress. HEART: Regular rate and rhythm. No murmur heard. Normal peripheral pulses. ABDOMEN: Soft, nontender, nondistended, normal active bowel sounds. : There is redness and swelling of the external genitalia EXTREMITIES: Normal range of motion. No edema. SKIN: erythematous rash. NEURO: No focal deficits. Alert and oriented x3. PSYCH: Normal mood and affect. Course Vital Signs Vital signs: Vital Signs Temperature 36.3 C L 12/22/23 09:17 Pulse Rate 72 12/22/23 09:17 Respiratory Rate 17 12/22/23 09:17 Blood Pressure 126/75 12/22/23 09:17 Pulse Oximetry 100 12/22/23 09:17 Oxygen Delivery Room Air 12/22/23 09:17 Temperature 36.3 C L 12/22/23 09:17 Pulse Rate 72 12/22/23 09:17 Respiratory Rate 12/22/23 09:17 Blood Pressure 126/75 12/22/23 09:17 Pulse Oximetry 100 12/22/23 09:17 Oxygen Delivery Room Air 12/22/23 09:17 Medical Decision Making [facility] Narrative Medical decision making narrative: differential diagnosis includes scabies/bedbugs, cellulitis, chemical dermatitis the patient will be started on steroids given a shot of Decadron and started on prednisone 40 mg daily patient will get given a prescription for Elimite and will also be started on Bactrim Vital Signs Vital Signs: Vital Signs Temperature 36.3 C L 12/22/23 09:17 Pulse Rate 72 12/22/23 09:17 Respiratory Rate 17 12/22/23 09:17 Blood Pressure 126/75 12/22/23 09:17 Pulse Oximetry 100 12/22/23 09:17 Oxygen Delivery Room Air 12/22/23 09:17 Temperature 36.3 C L 12/22/23 09:17 Pulse Rate 72 12/22/23 09:17 Respiratory Rate 12/22/23 0
[2023-12-22] MEDS: dexAMETHasone SOD PHOS INJ 10 MG/ML 1 ML VIAL IM (10:37)
[2023-12-22 10:43] VITALS: BP 140/91; PULSE 71; RESP 17; O2SAT 100
== END 2023-12-22 10:45 | disposition home or self-care (01) ==
LOC: ANHED 10:28
PROVIDERS: Emergency Provider Emergency Medicine; PCP Family Medicine
DX: L30.9 Dermatitis, unspecified (principal); K76.9 Liver disease, unspecified; F17.210 Nicotine dependence, cigarettes, uncomplicated; Z79.899 Other long term (current) drug therapy
CPT/HCPCS: 96372; 99283; J1100

== ENCOUNTER 2024-01-03 07:46 | Emergency (ER) | payer OTHER, SELFPAY ==
[2024-01-03 07:43] VITALS: BP 130/82; PULSE 84; RESP 14; TEMP 36.4; O2SAT 100
--- NOTE | 2024-01-03 08:12 | ECG_ITS ---
Test Date: 2024-01-03 08:25:54 Measurements Intervals [place] Rate: 66 P: 73 NC: 132 QRS: 53 QRSD: 90 T: 54 QT: 453 QTc: 478 Interpretive Statements SINUS RHYTHM WITH PACS NONSPECIFIC T-WAVE ABNORMALITY ABNORMAL ECG No previous ECG available for comparison Electronically Signed On 01-03-2024 13:23:39 CDT by Johnie Vasquez M.D.
--- NOTE | 2024-01-03 08:12 | ED.GENADULT ---
HPI - General Adult General Chief complaint: Unspecified Stated complaint: was confused, now aox4 Time Seen by Provider: 01/03/24 08:08 History of Present Illness HPI narrative: 43-year-old male presents to the emergency department for evaluation for not feeling well. Patient states he is currently on an antibiotic for bug bites . Patient states that after he woke up began feeling unwell. Patient states he does still feel strange. Patient is unable to articulate better when he is experiencing. Patient appears to be in no distress. Patient is disheveled appearing But patient appears alert oriented and appropriate. Related Data Home Medications Medication Instructions Recorded Confirmed amitriptyline 10 mg tablet 10 mg PO DAILY 08/04/20 ergocalciferol (vitamin D2) 1,250 08/04/20 mcg (50,000 unit) capsule ergocalciferol (vitamin D2) 1,250 50,000 unit PO DAILY 08/04/20 08/04/20 mcg (50,000 unit) capsule gabapentin 100 mg capsule 100 mg PO BID 08/04/20 lisinopril 5 mg tablet 5 mg PO DAILY 08/04/20 sumatriptan succinate 25 mg tablet 25 mg PO DAILY 08/04/20 08/04/20 Allergies Allergy/AdvReac Type Severity Reaction Status Date / Time No Known Allergies Allergy Unknown Verified 12/22/23 10:19 Review of Systems Review of Systems: All systems reviewed & are unremarkable except as noted in HPI and below PMFSH Past Medical History Medical History (Updated 01/03/24 @ 10:25 by Steve Hastings MD) History of anxiety History of liver disease Hx of fracture of rib Surgical History Surgical History Surgical history unknown Social History Social History Smoking packs per day: 1 Smoking cigarettes per day: 20.0 Smoking status: Current every day smoker Alcohol intake: current Gender identity (if verbalized by the patient): Male Exam Narrative: APPEARANCE: Well appearing, no pain, no distress, well-nourished. HEAD: normocephalic, atraumatic. EYES: PERRLA/EOMI, conjunctivae clear. NOSE: Normal no drainage EARS:TMS clear with good light reflex. THROAT: Pharynx clear, no exudate. NECK: Supple. No adenopathy, no masses. RESPIRATORY: Airway patent, respirations nonlabored. Clear to auscultation bilaterally, no rales, rhonchi, wheezing. CARDIOVASCULAR: Regular rate and rhythm without murmurs rubs or gallops. ABDOMINAL: Soft, nontender, nondistended, normal bowel sounds MUSCULOSKELETAL: Moves all extremities. Strength/ROM intact, No edema, No calf tenderness. NEURO: Alert. Cranial nerves II through XII intact. Grossly intact SKIN: bug bites on lower legs Course Vital Signs Vital signs: Vital Signs Temperature 97.6 F 01/03/24 07:43 Pulse Rate 84 01/03/24 07:43 Respiratory Rate 14 01/03/24 07:43 Blood Pressure 130/82 01/03/24 07:43 Pulse Oximetry 100 01/03/24 07:43 Oxygen Delivery Room Air 01/03/24 07:43 Temperature 97.6 F 01/03/24 07:43 Pulse Rate 75 01/03/24 10:01 Respiratory Rate 14 01/03/24 10:01 Blood Pressure 127/77 01/03/24 10:01 Pulse Oximetry 100 01/03/24 10:01 Oxygen Delivery Room Air 01/03/24 07:43 Medical Decision Making MDM Narrative Medical decision making narrative: 43-year-old male presenting to the emergency department for evaluation for not feeling well. After rehydration patient states he does feel improved. Patient has been afebrile with no leukocytosis and a stable hemoglobin of 14. Patient has no significant abnormalities on his CMP. Patient was negative for influenza RSV and for COVID. At time of evaluation patient states he feels improved and patient is requesting discharge to home. Patient was encouraged of close follow-up with his primary care physician. All questions concerns were addressed. Differential Diagnosis Differential Diagnosis: influenza, RSV, COVID, dehydration Vital
[2024-01-03] MEDS: SODIUM CHLORIDE 0.9% IV 1,000 ML 999 ML IV CONT ×2 (08:27→09:58)
[2024-01-03 08:34] LABS: Basophils Percent Auto 0.5 % (0.2-1.2); Eosinophils Absolute Auto 0.2 K/mm3 (0-0.3); Eosinophils Percent Auto 2.7 % (0-4.4); Hematocrit 40.1 % (42.0-52.0); Immature Granulocyte Absolute 0.02 K/mm3 (0.00-0.031); Immature Granulocyte Percent A 0.4 % (0-0.5); Lymphocytes Absolute Auto 1.68 K/mm3 (0.9-3.2); Mean Corpuscular HGB Conc 34.9 g/dl (32-36); Mean Corpuscular Hemoglobin 33.2 pg (26-34); Monocytes Absolute Auto 0.4 K/mm3 (0.1-0.6); Monocytes Percent Auto 7.5 % (2.6-8.5); Neutrophils Absolute Auto 3.3 K/mm3 (1.3-6.7); Neutrophils Percent Auto 58.9 % (45.5-73.1); Platelet Count Result 238 k/mm3 (150-375); Red Blood Count 4.22 M/mm3 (4.6-6.20); Red Cell Distribution Width 13.1 % (11.5-14.5); White Blood Count 5.6 K/mm3 (4.5-10.0)
--- NOTE | 2024-01-03 08:42 | PC.NURSE ---
Urinal given to pt for urine sample. Pt states he will try to give a sample and press the call light for staff to collect.
[2024-01-03 09:10] LABS: Influenza A QL RT-PCR Negative (Negative); Influenza B QL RT-PCR Negative (Negative); RSV RNA, RT-PCR Negative (Negative); SARS-CoV-2 RNA PCR Negative (Negative)
[2024-01-03 09:15] LABS: Alanine Aminotransferase 21 U/L (6-50); Albumin Level 4.1 g/dL (3.5-5.1); Alkaline Phosphatase 97 U/L (38-126); Anion Gap 11 mmol/L (4-12); Aspartate Amino Transferase 29 U/L (17-59); Bilirubin,Total 0.6 mg/dL (0.2-1.3); Blood Urea Nitrogen 25 mg/dL (9-20); Calcium 8.7 mg/dL (8.4-10.2); Carbon Dioxide 24 mmol/L (22-30); Chloride 103 mmol/L (98-107); Estimated CRCL calculation 90 ml/min; Estimated Glomerular Filt Rate > 60; Glucose 97 mg/dL (65-110); Potassium 3.5 mmol/L (3.4-5.0); Sodium 138 mmol/L (137-145)
[2024-01-03 10:01] VITALS: BP 127/77; PULSE 75; RESP 14; O2SAT 100
--- NOTE | 2024-01-03 10:14 | PC.NURSE ---
Pt reports unable to give urine sample at this time. Refusing catheter.
--- NOTE | 2024-01-03 10:27 | PC.NURSE ---
Kiara, pt mom, called for update. Pt gave permission to give update to mom. She states she can pick pt up upon d/c and can be reached at [phone].
== END 2024-01-03 11:12 | disposition home or self-care (01) ==
PROVIDERS: Emergency Provider Emergency Medicine; PCP Family Medicine
DX: R41.0 Disorientation, unspecified (principal); S80.862D Insect bite (nonvenomous), left lower leg, subsequent encounter; S80.861D Insect bite (nonvenomous), right lower leg, subsequent encounter; Z20.822 Contact with and (suspected) exposure to COVID-19; K76.9 Liver disease, unspecified; F41.9 Anxiety disorder, unspecified; F17.210 Nicotine dependence, cigarettes, uncomplicated; Z79.899 Other long term (current) drug therapy; R94.31 Abnormal electrocardiogram [ECG] [EKG]; W57.XXXD Bitten or stung by nonvenomous insect and other nonvenomous arthropods, subsequent encounter
CPT/HCPCS: 36415; 80053; 85025; 87637; 93005; 96360; 96361; 99283; J7030